=== PATIENT | female | born 1965 | race Caucasian/White ===

== ENCOUNTER 2024-03-31 09:00 | Inpatient (IN) | payer MEDICAID, OTHER ==
[~2024-03-31] VITALS: Ht 172.7 cm; Wt 82.6 kg
[~2024-03-31 09:00] MED LIST: TYLENOL
[2024-03-31 09:33] LABS: Basophils # (auto) 0 10 ^3/uL (0-0.2); Basophils % (auto) 0.6 % (0.0-2.0); Eosinophils # (auto) 0.1 10 ^3/uL (0-0.8); Eosinophils % (auto) 1.7 % (0.0-7.0); Hematocrit 38.9 % (36.0-46.0); Hemoglobin 13.3 g/dL (12.2-16.2); Lymphocytes # (auto) 3.2 10 ^3/uL (0.4-5.4); Lymphocytes % (auto) 40.1 % (10.0-50.0); Mean Corpuscular Hemoglobin 28.9 pg (28.0-32.0); Mean Corpuscular Hgb Conc. 34.2 g/dL (32.0-36.0); Mean Corpuscular Volume 84.4 fL (80.0-100.0); Monocytes # (auto) 0.7 10 ^3/uL (0-1.3); Monocytes % (auto) 8.7 % (0.0-12.0); Neutrophils # (auto) 3.9 10 ^3/uL (1.6-8.6); Neutrophils % (auto) 48.9 % (37.0-80.0); Nucleated Red Blood Cells % 0.1 %; Platelet Count (auto) 316 10^3/uL (140-450); Red Blood Cells 4.61 10^6/uL (4.0-5.20)
[2024-03-31 09:43] LABS: Alanine Aminotransferase 22 U/L (7-40); Albumin 4.8 g/dL (3.2-4.8); Alkaline Phosphatase 92 U/L (46-116); Anion Gap 10 (5-15); Aspartate Aminotransferase 15 U/L (13-40); BUN/Creatinine Ratio 12.8 (10.0-20.0); Blood Urea Nitrogen 10 mg/dL (9-23); Calcium 10.5 mg/dL (8.7-10.4); Carbon Dioxide 22 mmol/L (20-30); Chloride 106 mmol/L (98-107); Glucose 112 mg/dL (74-106); Potassium 3.6 mmol/L (3.5-5.1); Sodium 138 mmol/L (136-145)
[2024-03-31 09:44] LABS: Bilirubin, Total 0.4 mg/dL (0.2-1.0); Total Protein 7.5 g/dL (5.7-8.2)
[2024-03-31 10:12] LABS: Urine Bacteria FEW /hpf (None Seen); Urine Blood Negative /uL (Negative); Urine Clarity Clear (Clear); Urine Color Colorless (Yellow); Urine Protein, UAD Negative (Negative); Urine Specific Gravity 1.003 (1.001-1.035); Urine Urobilinogen Normal (Negative); Urine WBC <1 /hpf (0 - 5); Urine pH 6.5 (5.0-9.0)
[2024-03-31 10:49] VITALS: O2SAT 99
[2024-03-31] MEDS: SODIUM CHLORIDE 0.9% 1,000 ML IV ONE (11:00)
[2024-03-31] MEDS: ONDANSETRON HCL 4 MG/2 ML VIAL IV ONE ×2 (11:02→14:57)
[2024-03-31] MEDS: MORPHINE SULFATE 4 MG/ML SYR/VIAL IV ONE ×2 (11:03→14:58)
[2024-03-31 12:42] LABS: COVID19 ANTIGEN SOFIA FIA NEGATIVE (NEGATIVE)
[2024-03-31] MEDS ORDERED: DOCUSATE SOD 100 MG CAP PO PRN (16:30)
[2024-03-31] MEDS ORDERED: NITROGLYCERIN 0.4 MG SL TAB SL PRN (16:30)
[2024-03-31] MEDS ORDERED: ACETAMINOPHEN 325 MG TAB PO PRN (16:30)
[2024-03-31] MEDS ORDERED: METO-289 PO (16:33)
[2024-03-31] MEDS ORDERED: SIMV20TA20 PO (16:33)
[2024-03-31] MEDS ORDERED: ESCI1TAB36 PO (16:33)
[2024-03-31] MEDS ORDERED: LOSA-534 PO (16:33)
[2024-03-31 18:15] VITALS: PULSE 73; O2SAT 95
[2024-03-31 19:05] VITALS: PULSE 79; O2SAT 95
[2024-03-31] MEDS: MORPHINE SULFATE INJ 2 MG/ml SYRG IV PRN (19:06)
[2024-03-31] MEDS: LOSARTAN POTASSIUM 50 MG TAB PO SCH (21:52)
[2024-03-31 22:56] VITALS: PULSE 75; RESP 20; O2SAT 97
[2024-03-31] MEDS: TEMAZEPAM 15 MG CAP PO PRN (23:18)
[2024-03-31] MEDS: HYDROcodone-ACET 5/325MG TAB PO PRN (23:18)
[2024-03-31] MEDS ORDERED: SIMV40TA18 PO (23:53)
[2024-03-31] MEDS ORDERED: CYCL-838 PO (23:53)
[2024-03-31] MEDS ORDERED: ESZO2TAB24 PO (23:53)
[2024-03-31] MEDS ORDERED: HYDR-4902 PO (23:53)
[2024-03-31] MEDS ORDERED: DOXE10CA34 PO (23:53)
[2024-03-31] MEDS ORDERED: MAGN400T40 OR (23:53)
[2024-03-31] MEDS ORDERED: ESCI10TA PO (23:53)
[2024-03-31] MEDS ORDERED: ALPR1TAB2 PO (23:53)
[2024-03-31] MEDS ORDERED: METO25TA93 PO (23:53)
[2024-04-01] VITALS (8 sets, daily range): BP systolic 119–152; BP diastolic 71–99; PULSE 75–93; RESP 16–20; TEMP 98–98.4; O2SAT 90–97
[2024-04-01 06:06] LABS: Basophils # (auto) 0.1 10 ^3/uL (0-0.2); Basophils % (auto) 0.8 % (0.0-2.0); Eosinophils # (auto) 0.2 10 ^3/uL (0-0.8); Eosinophils % (auto) 3.3 % (0.0-7.0); Hematocrit 38.2 % (36.0-46.0); Lymphocytes # (auto) 2.4 10 ^3/uL (0.4-5.4); Lymphocytes % (auto) 36.5 % (10.0-50.0); Mean Corpuscular Hemoglobin 28.7 pg (28.0-32.0); Mean Corpuscular Volume 84.5 fL (80.0-100.0); Monocytes # (auto) 0.6 10 ^3/uL (0-1.3); Monocytes % (auto) 9.8 % (0.0-12.0); Neutrophils # (auto) 3.3 10 ^3/uL (1.6-8.6); Neutrophils % (auto) 49.6 % (37.0-80.0); Nucleated Red Blood Cells % 0.1 %; Platelet Count (auto) 266 10^3/uL (140-450); Red Blood Cells 4.52 10^6/uL (4.0-5.20); Red Cell Distribution Width 13.1 % (11.8-14.3); White Blood Cell 6.6 10^3/uL (4.4-10.8)
[2024-04-01 06:23] LABS: Alanine Aminotransferase 22 U/L (7-40); Alkaline Phosphatase 86 U/L (46-116); Anion Gap 4 (5-15); BUN/Creatinine Ratio 9.7 (10.0-20.0); Blood Urea Nitrogen 7 mg/dL (9-23); Carbon Dioxide 26 mmol/L (20-30); Chloride 109 mmol/L (98-107); Glucose 96 mg/dL (74-106); LDL Cholesterol 145 mg/dL (< 100); Potassium 3.8 mmol/L (3.5-5.1); Sodium 139 mmol/L (136-145); Triglycerides 117 mg/dL (< 150)
[2024-04-01 06:24] LABS: Albumin 4.4 g/dL (3.2-4.8); Aspartate Aminotransferase 14 U/L (13-40); Bilirubin, Total 0.5 mg/dL (0.2-1.0); Cholesterol 208 mg/dL (< 200); HDL Cholesterol 36 mg/dL (40-59); Total Protein 6.8 g/dL (5.7-8.2)
[2024-04-01] MEDS: ONDANSETRON HCL 4 MG/2 ML VIAL IV PRN (08:12)
[2024-04-01] MEDS: PANTOPRAZOLE 40 MG/10 ML VIAL INJ IV SCH (09:16)
[2024-04-01] MEDS: ENOXAPARIN SOD 40 MG/0.4 ML SYRINGE SC SCH (09:17)
[2024-04-01] MEDS: CITALOPRAM HYDROBR 20 MG TAB PO SCH (09:17)
[2024-04-01] MEDS: METOPROLOL SUCCINATE XL 50 MG TAB PO SCH (09:17)
[2024-04-01] MEDS: ALPRAZolam 0.5 MG TAB PO ONE (11:35)
[2024-04-01] MEDS ORDERED: ATORVASTATIN 20 MG TAB PO SCH (22:00)
[2024-04-01] MEDS: ALPRAZolam 0.5 MG TAB PO SCH (22:34)
[2024-04-01] MEDS: ATORVASTATIN 20 MG TAB PO SCH (22:35)
== END 2024-04-01 23:25 | disposition left against medical advice (07) | DRG 203 ==
LOC: ER 09:05 → TELE 16:33 → TELE-WESTW 22:49
PROVIDERS: ADMIT Nurse Practitioner; ATTEND Nurse Practitioner
DX: R07.89 Other chest pain (principal); E66.9 Obesity, unspecified; I10 Essential (primary) hypertension; E78.5 Hyperlipidemia, unspecified; F41.1 Generalized anxiety disorder; I34.0 Nonrheumatic mitral (valve) insufficiency; Z20.822 Contact with and (suspected) exposure to COVID-19; K21.9 Gastro-esophageal reflux disease without esophagitis; F43.10 Post-traumatic stress disorder, unspecified; Z88.6 Allergy status to analgesic agent; Z79.899 Other long term (current) drug therapy; Z68.27 Body mass index [BMI] 27.0-27.9, adult; Z90.710 Acquired absence of both cervix and uterus
CPT/HCPCS: 36415; 71045; 80053; 80061; 81001; 83036; 83880; 84484; 85025; 87426; 93005; 93306; 99291; G0378; J2405; J2470